=== PATIENT | female | born 1960 | race American Indian/Alaskan Native ===

== ENCOUNTER 2023-07-20 17:58 | Inpatient (IN) | payer MEDICARE, MEDICAID ==
[2023-07-20 19:29] LABS: BASOPHILS PERCENT AUTO 0.2 % (0.1-1.3); EOSINOPHILS ABSOLUTE AUTO 0.03 K/uL (0.00-0.40); EOSINOPHILS PERCENT AUTO 0.3 % (0.0-5.4); HEMATOCRIT 39.9 % (34.3-46.0); HEMOGLOBIN 13.5 g/dL (11.2-15.5); IMMATURE GRAN ABSOLUTE AUTO 0.05 K/uL (0.00-0.23); IMMATURE GRAN PERCENT AUTO 0.5 % (0.0-0.7); LYMPHOCYTES ABSOLUTE AUTO 0.87 K/uL (0.8-3.3); LYMPHOCYTES PERCENT AUTO 9.2 % (11.4-47.7); MEAN CORPUSCULAR HEMOGLOBIN 29.9 pg (31.6-35.5); MEAN CORPUSCULAR HGB CONC 33.8 g/dL (31.6-35.5); MEAN CORPUSCULAR VOLUME 88.5 fL (81.4-99.0); MONOCYTES ABSOLUTE AUTO 0.49 K/uL (0.20-0.90); MONOCYTES PERCENT AUTO 5.2 % (3.3-12.6); NEUTROPHILS ABSOLUTE AUTO 8.04 K/uL (1.0-7.6); NEUTROPHILS PERCENT AUTO 84.6 % (40.0-78.1); PLATELET COUNT,PLT 241 K/uL (130-375); RED BLOOD CELL COUNT 4.51 M/uL (3.77-5.24); WHITE BLOOD CELL COUNT,WBC 9.5 K/uL (3.2-11.0)
[2023-07-20 19:31] LABS: BASOPHILS ABSOLUTE AUTO 0.02 K/uL (0.00-0.10)
[2023-07-20 19:45] LABS: ANION GAP 6.4 mmol/L (5.0-14.0); CALCIUM 9.5 mg/dL (8.5-10.1); EST CRCL DRUG DOSING (CG) 54.6 mL/min; POTASSIUM,K 4.1 mmol/L (3.6-5.2)
[2023-07-20 20:09] LABS: APPEARANCE,URINE CLOUDY (CLEAR); BILIRUBIN,URINE NEGATIVE (NEGATIVE); COLOR,URINE YELLOW (YELLOW); GLUCOSE,URINE NEGATIVE (NEGATIVE); KETONES,URINE NEGATIVE (NEGATIVE); LEUKOCYTE ESTERASE,URINE TRACE (NEGATIVE); NITRITE,URINE POSITIVE (NEGATIVE); OCCULT BLOOD,URINE MODERATE (NEGATIVE); PH,URINE 5.5 (5.0-8.0); PROTEIN,URINE NEGATIVE (NEGATIVE); UROBILINOGEN,URINE 0.2 EU/dL (0.2-1.0)
[2023-07-20 20:16] LABS: AMORPHOUS SEDIMENT,URINE NOT SEEN; BACTERIA,URINE MANY; EPITHELIAL CELLS,URINE FEW; MUCUS,URINE NOT SEEN; RBC,URINE 50-75 (0-5)
[2023-07-20] MEDS: Sodium Chloride 0.9% 1,000 ML IV SCH ×2 (20:56→22:36)
[2023-07-20] MEDS: cefTRIAXone 2 GM in Sodium Chloride 0.9% 50 ML IV ONE (20:57)
[2023-07-20] MEDS ORDERED: Naloxone 0.4 MG/ML SDV IVPUSH PRN (22:16)
[2023-07-20] MEDS ORDERED: Albuterol 0.083% 2.5 MG/3 ML Neb Soln NEB PRN (22:16)
[2023-07-20] MEDS ORDERED: Acetaminophen 325 MG Tab PO PRN (22:16)
[2023-07-20] MEDS ORDERED: Ondansetron 4 MG Tab.DIS PO PRN (22:16)
[2023-07-20] MEDS ORDERED: oxyCODONE 5 MG Tab PO PRN (22:16)
[2023-07-20] MEDS ORDERED: Docusate Sodium 100 MG Cap PO PRN (22:16)
[2023-07-20] MEDS ORDERED: Morphine 2 MG/ML SYRINGE IVPUSH PRN (22:16)
[2023-07-21 05:21] LABS: BASOPHILS PERCENT AUTO 0.3 % (0.1-1.3); EOSINOPHILS ABSOLUTE AUTO 0.05 K/uL (0.00-0.40); EOSINOPHILS PERCENT AUTO 0.7 % (0.0-5.4); HEMATOCRIT 39.6 % (34.3-46.0); HEMOGLOBIN 13.3 g/dL (11.2-15.5); IMMATURE GRAN ABSOLUTE AUTO 0.04 K/uL (0.00-0.23); IMMATURE GRAN PERCENT AUTO 0.6 % (0.0-0.7); LYMPHOCYTES ABSOLUTE AUTO 1.25 K/uL (0.8-3.3); LYMPHOCYTES PERCENT AUTO 17.4 % (11.4-47.7); MEAN CORPUSCULAR HEMOGLOBIN 29.7 pg (31.6-35.5); MEAN CORPUSCULAR HGB CONC 33.6 g/dL (31.6-35.5); MEAN CORPUSCULAR VOLUME 88.4 fL (81.4-99.0); MONOCYTES ABSOLUTE AUTO 0.44 K/uL (0.20-0.90); MONOCYTES PERCENT AUTO 6.1 % (3.3-12.6); NEUTROPHILS PERCENT AUTO 74.9 % (40.0-78.1); PLATELET COUNT,PLT 215 K/uL (130-375); RED BLOOD CELL COUNT 4.48 M/uL (3.77-5.24); WHITE BLOOD CELL COUNT,WBC 7.2 K/uL (3.2-11.0)
[2023-07-21 05:44] LABS: BASOPHILS ABSOLUTE AUTO 0.02 K/uL (0.00-0.10)
[2023-07-21 05:47] LABS: ANION GAP 5.5 mmol/L (5.0-14.0); CREATININE 0.9 mg/dL (0.6-1.0); EST CRCL DRUG DOSING (CG) 60.67 mL/min; POTASSIUM,K 3.8 mmol/L (3.6-5.2)
[2023-07-21] MEDS ORDERED: Rivaroxaban 10 MG Tab PO SCH (09:00)
[2023-07-21] MEDS: cefTRIAXone 1 GM in Sodium Chloride 0.9% 50 ML IV SCH (09:43)
[2023-07-21] MEDS: Pantoprazole 40 MG Tab.CR PO SCH (09:43)
[2023-07-22 05:30] LABS: BASOPHILS PERCENT AUTO 0.4 % (0.1-1.3); EOSINOPHILS ABSOLUTE AUTO 0.07 K/uL (0.00-0.40); EOSINOPHILS PERCENT AUTO 1.2 % (0.0-5.4); HEMATOCRIT 39.3 % (34.3-46.0); HEMOGLOBIN 13.3 g/dL (11.2-15.5); IMMATURE GRAN ABSOLUTE AUTO 0.05 K/uL (0.00-0.23); IMMATURE GRAN PERCENT AUTO 0.9 % (0.0-0.7); LYMPHOCYTES ABSOLUTE AUTO 1.08 K/uL (0.8-3.3); MEAN CORPUSCULAR HEMOGLOBIN 29.4 pg (31.6-35.5); MEAN CORPUSCULAR HGB CONC 33.8 g/dL (31.6-35.5); MEAN CORPUSCULAR VOLUME 86.9 fL (81.4-99.0); MONOCYTES ABSOLUTE AUTO 0.42 K/uL (0.20-0.90); MONOCYTES PERCENT AUTO 7.4 % (3.3-12.6); NEUTROPHILS ABSOLUTE AUTO 4.04 K/uL (1.0-7.6); NEUTROPHILS PERCENT AUTO 71.1 % (40.0-78.1); PLATELET COUNT,PLT 204 K/uL (130-375); RED BLOOD CELL COUNT 4.52 M/uL (3.77-5.24); WHITE BLOOD CELL COUNT,WBC 5.7 K/uL (3.2-11.0)
[2023-07-22 05:36] LABS: BASOPHILS ABSOLUTE AUTO 0.02 K/uL (0.00-0.10)
[2023-07-22 05:45] LABS: ANION GAP 8.3 mmol/L (5.0-14.0); CALCIUM 9.3 mg/dL (8.5-10.1); CREATININE 0.9 mg/dL (0.6-1.0); EST CRCL DRUG DOSING (CG) 60.67 mL/min; POTASSIUM,K 3.8 mmol/L (3.6-5.2)
[2023-07-23 05:33] LABS: BASOPHILS ABSOLUTE AUTO 0.04 K/uL (0.00-0.10); BASOPHILS PERCENT AUTO 0.7 % (0.1-1.3); EOSINOPHILS ABSOLUTE AUTO 0.08 K/uL (0.00-0.40); EOSINOPHILS PERCENT AUTO 1.3 % (0.0-5.4); HEMATOCRIT 39.8 % (34.3-46.0); HEMOGLOBIN 13.6 g/dL (11.2-15.5); IMMATURE GRAN ABSOLUTE AUTO 0.06 K/uL (0.00-0.23); LYMPHOCYTES ABSOLUTE AUTO 1.14 K/uL (0.8-3.3); MEAN CORPUSCULAR HEMOGLOBIN 29.6 pg (31.6-35.5); MEAN CORPUSCULAR HGB CONC 34.2 g/dL (31.6-35.5); MEAN CORPUSCULAR VOLUME 86.7 fL (81.4-99.0); MONOCYTES ABSOLUTE AUTO 0.54 K/uL (0.20-0.90); NEUTROPHILS ABSOLUTE AUTO 4.15 K/uL (1.0-7.6); PLATELET COUNT,PLT 215 K/uL (130-375); RED BLOOD CELL COUNT 4.59 M/uL (3.77-5.24)
[2023-07-23 05:54] LABS: CALCIUM 9.4 mg/dL (8.5-10.1); CREATININE 0.9 mg/dL (0.6-1.0); EST CRCL DRUG DOSING (CG) 60.67 mL/min; POTASSIUM,K 3.8 mmol/L (3.6-5.2)
[2023-07-23 06:09] LABS: ANION GAP 11.8 mmol/L (5.0-14.0)
[2023-07-23] MEDS: Levofloxacin 250 MG Tab PO SCH (11:47)
[2023-07-23] MEDS: Rivaroxaban 10 MG Tab PO SCH (16:16)
[2023-07-24] MEDS: Bisacodyl 5 MG Tab PO PRN (13:04)
[2023-07-25] MEDS: Docusate Sodium 100 MG Cap PO SCH (12:08)
[2023-07-27] MEDS ORDERED: Magnesium Hydroxide 400 MG/5 ML Susp 30 ML Cup PO PRN (00:41)
[2023-07-27] MEDS: Bisacodyl 10 MG Supp RECTAL PRN (05:32)
== END 2023-07-27 11:53 | disposition home or self-care (01) | DRG 158 ==
LOC: JP.ED 17:58 → JP.MS 21:05
PROVIDERS: ADMIT Nurse Practitioner; ATTEND Internal Medicine
DX: S01.511A Laceration without foreign body of lip, initial encounter (principal); N30.00 Acute cystitis without hematuria; S09.90XA Unspecified injury of head, initial encounter; W19.XXXA Unspecified fall, initial encounter; Z79.02 Long term (current) use of antithrombotics/antiplatelets; F03.90 Unspecified dementia, unspecified severity, without behavioral disturbance, psychotic disturbance, mood disturbance, and anxiety; K21.9 Gastro-esophageal reflux disease without esophagitis; K59.00 Constipation, unspecified; B96.20 Unspecified Escherichia coli [E. coli] as the cause of diseases classified elsewhere; Z79.01 Long term (current) use of anticoagulants; Z86.16 Personal history of COVID-19; Z79.899 Other long term (current) drug therapy; Z87.891 Personal history of nicotine dependence; Z85.841 Personal history of malignant neoplasm of brain; Z85.118 Personal history of other malignant neoplasm of bronchus and lung; Z86.73 Personal history of transient ischemic attack (TIA), and cerebral infarction without residual deficits; W01.10XA Fall on same level from slipping, tripping and stumbling with subsequent striking against unspecified object, initial encounter; Y92.009 Unspecified place in unspecified non-institutional (private) residence as the place of occurrence of the external cause
CPT/HCPCS: 36415; 70450; 70486; 80048; 81001; 83605; 85025; 96374; 99284; 99285; J0696; J3490; J7030; 87086; 87186; 97110-GP; 97162-GP; 97165-GO; 97530-GP; 97535-GP; 99223; 99233; 99238; A9270-GY

== ENCOUNTER 2023-07-28 12:17 | Inpatient (IN) | payer MEDICARE, MEDICAID ==
[2023-07-28] MEDS ORDERED: Ondansetron 4 MG/2 ML SDV IV PRN (16:30)
[2023-07-28] MEDS ORDERED: Magnesium Hydroxide 400 MG/5 ML Susp 30 ML Cup PO PRN (16:30)
[2023-07-28] MEDS ORDERED: Acetaminophen 325 MG Tab PO PRN (16:30)
[2023-07-28] MEDS ORDERED: Sennosides/Docusate Sodium 50-8.6 MG Tab PO PRN (16:30)
[2023-07-28] MEDS ORDERED: Ondansetron 4 MG Tab.DIS PO PRN (16:30)
[2023-07-28] MEDS ORDERED: Melatonin 3 MG Tab PO PRN (16:30)
[2023-07-28] MEDS: Rivaroxaban 10 MG Tab PO SCH (17:11)
[2023-07-29] MEDS: Pantoprazole 40 MG Tab.CR PO SCH (07:14)
[2023-07-31] MEDS: Lactobacillus Rhamnosus GG (Probiotic) Cap PO SCH (09:33)
[2023-08-02 11:50] VITALS: BP 102/59; PULSE 80
== END 2023-08-02 12:18 | disposition home or self-care (01) | DRG 948 ==
LOC: JP.ED 12:17 → JP.MS 14:57
PROVIDERS: ADMIT Internal Medicine; ATTEND Hospitalist
DX: R53.1 Weakness (principal); K21.9 Gastro-esophageal reflux disease without esophagitis; G31.84 Mild cognitive impairment of uncertain or unknown etiology; W18.30XA Fall on same level, unspecified, initial encounter; E86.0 Dehydration; Z86.16 Personal history of COVID-19; Z79.01 Long term (current) use of anticoagulants; Z79.02 Long term (current) use of antithrombotics/antiplatelets; Z86.73 Personal history of transient ischemic attack (TIA), and cerebral infarction without residual deficits; Z79.899 Other long term (current) drug therapy; Z85.841 Personal history of malignant neoplasm of brain; Z85.118 Personal history of other malignant neoplasm of bronchus and lung
CPT/HCPCS: 97110-GO; 97110-GP; 97116-GP; 97161-GP; 97165-GO; 99222; 99231; 99232; 99238; 99285; A9270-GY